=== PATIENT | female | born 1965 | race Caucasian/White ===

== ENCOUNTER 2016-05-29 18:03 | Emergency (ER) | payer BC ==
--- NOTE | ~2016-05-29 | ER ---
PATIENT'S NAME: SHUN KOWALSKI [facility] AGE: 50 Y [address] ROOM: [place] [address] LOCATION: [facility] ADMIT DATE: 05/29/2016 ER/Outpatient Report DISCHARGE DATE: 05/29/2016 FAMILY PHYSICIAN: PHYSICIAN, NO ATTENDING PHYSICIAN: Aleisha Sheridan Shun Kowalski is a 50-year-old female, who was evaluated by Dr. Ave Salguero, third year resident. I confirmed the history and physical, evaluated the patient with the resident, and agree with her assessment and plan. Please refer to her dictation. MD MAGAN SCRUGGS/vini /[id number] d: 05/30/16 0057 t: 05/30/16 0800, OUTPATIENT REPORT
--- NOTE | ~2016-05-29 | ER ---
PATIENT'S NAME: SHUN NEGRO [facility] AGE: 50 Y [address] ROOM: [place] [address] LOCATION: [facility] ADMIT DATE: 05/29/2016 ER/Outpatient Report DISCHARGE DATE: 05/29/2016 FAMILY PHYSICIAN: PHYSICIAN, NO ATTENDING PHYSICIAN: Danielle Sheridan HISTORY OF PRESENT ILLNESS: The patient is a 50-year-old female who presents with chief complaint of abscess in her right armpit. Started noticing it a couple days ago. She stated it started out with a size of a pea and then it is now the size which she described as peach pit. The patient states that she is feeling well, nauseous off and on today, and has had some chills yesterday. She said the biggest complaint is "lethargy." The patient states that she has had this in the past on the left side. They I and D'd it and placed her on antibiotics and she feels that this is the same thing or similar. She states that last night she tried to pop it by placing an insulin needle in the location and trying to squeeze to express and she states that nothing came out. She has not taken any other medications or tried any other treatments for this. PAST MEDICAL HISTORY: Heart arrhythmia. MEDICATIONS: She is on: 1. Pristiq 100 daily. 2. Vyvanse 30 mg daily. SOCIAL HISTORY: The patient denies smoking, tobacco use, illicit drug use, or alcohol use. ALLERGIES: SHE HAS MEDICAL ALLERGY TO SULFA. OTHERWISE, NO OTHER ALLERGIES. ROS: Complete comprehensive review of systems was completed and is negative except as documented in the HPI above. PHYSICAL EXAMINATION: VITAL SIGNS: Height is 5 feet 7 inches; weight 61.2 kg; BP 108/59; pulse 85; respiratory rate 18; temperature 97.6, TM; 97% on room air. GENERAL: She is in no acute distress. Alert and oriented x4. CARDIOVASCULAR: Regular rate and rhythm. No murmurs, rubs, or gallops. CHEST: Clear to auscultation bilaterally. ABDOMEN: Soft, nontender, and nondistended. Positive bowel sounds. EXTREMITIES: Lower extremity is nontender. No edema. She is able to move PATIENT'S NAME: SHUN NEGRO [facility] AGE: 50 Y [address] ROOM: [place], [place] [address] LOCATION: [facility] ADMIT DATE: 05/29/2016 ER/Outpatient Report DISCHARGE DATE: 05/29/2016 FAMILY PHYSICIAN: PHYSICIAN, NO ATTENDING PHYSICIAN: Danielle Sheridan all of her extremities without difficulty. There is a palpable cystic structure in her right armpit about the size of a quarter, surrounding induration. No fluctuance is appreciated on today's exam. LABORATORY DATA AND X-RAYS: No labs or imaging were performed. IMPRESSION: Cyst. EMERGENCY DEPARTMENT COURSE: The patient was examined and determined that risks of I and D at this point would outweigh benefit. This was discussed with the patient and presented options. It was decided the patient will be treated with 10-day course of clindamycin and she was instructed to follow up in 3-5 days with primary care provider to determine the best course of removing this cyst along with reevaluation of the surrounding cellulitic changes. The patient was instructed to return sooner if symptoms worsen or do not improve. The patient was counseled on wound care, warm compresses, Tylenol or ibuprofen for pain, and keep the area clean and dry. She was discharged home in good condition. JANETH MA MED STUDENT, RESIDENT FOR [place] SHERIDAN MD SLL/modl /[id number] d: 05/30/16 0024 t: 06/03/16 0648, OUTPATIENT REPORT
== END 2016-05-29 18:43 | disposition disaster alternative care site (69) ==
LOC: GMED 18:03
DX: L72.8 Other follicular cysts of the skin and subcutaneous tissue (principal); Z88.2 Allergy status to sulfonamides